=== PATIENT | male | born 1935 | race Caucasian/White ===

== ENCOUNTER 2019-03-12 20:10 | Inpatient (IN) ==
--- NOTE | 2019-03-12 20:29 | Emergency Department Note ---
Disposition Clinical Impression: Multiple transverse process fractures Pelvis fracture Qualifiers: Encounter type: initial encounter Pelvic bone location: pubis Sublocation of pubis: unspecified portion of pubis Fracture type: closed Laterality: unspecified laterality Qualified Code(s): S32.509A - Unspecified fracture of unspecified pubis, initial encounter for closed fracture Right rib fracture Qualifiers: Encounter type: sequela Rib fracture type: multiple ribs Fracture type: closed Qualified Code(s): S22.41XS - Multiple fractures of ribs, right side, sequela Disposition: Admitted As Inpatient Condition: Fair Referrals: NONE,PCP [Primary Care Provider] - Forms: ED Satisfaction Letter Time of Disposition: 22:33 General Adult HPI - General Chief complaint: ED Fall Stated complaint: fall Time Seen by Provider: 03/12/19 20:18 Source: patient Limitations: no limitations Nursing Notes Reviewed: Yes Vital Signs Reviewed: Yes - History of Present Illness HPI Narrative: Patient to the ED with a chief complaint of an injury. Patient was walking up 3 stairs from his garage carrying something. He has neuropathy in his feet. He states he missstepped and fell. Denies being dizzy, syncopal, or having palpitations. Complains of pain in his right ribs and pain in his right hip. He was able to stand after the fall. Denies loss of consciousness. Denies chest pain. Denies palpitations. He does have a history of an intracranial hemorrhage. He does take daily baby aspirin. Pain Scale: 6 - Related Data Home Medications Medication Instructions Recorded Confirmed Aspirin 81 mg PO DAILY 07/15/16 03/12/19 BuPROPion XL (24 HR) [Wellbutrin 150 mg PO DAILY 07/15/16 03/12/19 Xl] Citalopram Hydrobromide [Celexa] 10 mg PO DAILY 07/15/16 03/12/19 Metformin HCl [Glucophage] 1,000 mg PO BID 07/15/16 03/12/19 Metoprolol Succinate 100 mg PO DAILY 07/15/16 03/12/19 Rosuvastatin Calcium [Crestor] 5 mg PO DAILY 07/15/16 03/12/19 SitaGLIPtin [Januvia] 100 mg PO DAILY 07/15/16 03/12/19 Terazosin HCl 2 mg PO DAILY 07/15/16 03/12/19 Previous Rx's Medication Instructions Recorded Losartan [Cozaar] 25 mg PO DAILY #30 tablet 07/21/16 Allergies Allergy/AdvReac Type Severity Reaction Status Date / Time Phenothiazines Allergy Rash Verified 07/15/16 10:34 All systems ED: reviewed and negative except as stated. Constitutional: Denies: fever Cardiovascular: Reports: chest pain. Denies: palpitations Respiratory: Denies: dyspnea Gastrointestinal: Denies: abdominal pain Musculoskeletal: Denies: back pain, neck pain Past Medical History - Past Medical History Attestation: Yes The following information was validated with the patient. Source: patient Medical history: Reports: atrial fibrillation, coronary artery disease, CVA, diabetes, hypertension, myocardial infarction Psychiatric history: Reports: anxiety, depression - Social History Smoking Status: Never smoker Smokeless Tobacco Status: No Alcohol use: Reports: occasionally Drug use: Reports: none Physical Exam Awake alert sitting up in bed in no distress. - General Limitations: no limitations General appearance: alert, in no apparent distress - Head Head exam: atraumatic, normocephalic, normal inspection, other (No hematomas) - Eye Eye exam: Present: normal appearance - Neck Neck exam: Present: normal inspection, full ROM. Absent: tenderness - Chest Chest inspection: Present: other (Tenderness over the right lateral chest inferiorly. No crepitus. No ecchymosis.) - Respiratory Respiratory exam: Present: normal lung sounds bilaterally. Absent: respiratory distress, wheezes - Cardiovascular Cardiovascular exam: Present: regular rate, normal rhythm - Abdominal Exam Abdominal exam: Present: soft, Non-Tender. Absent: tenderness, distention - Extremities Exam Extremities exam: Present: other (Pain with rocking of the pelvis. Pain with log rolling of the right leg. No tenderness over the tib-fib or femur. No def ormities. The leg is not shortened or externally rotated. The foot is pink and warm.) - Neurological Exam Neurological exam: Present: alert, oriented X3 - Psychiatric Psychiatric exam: Present: normal affect - Skin Skin exam: Present: warm, dry Course Course Narrative: Patient in no distress. Imaging. He declines pain meds. - Reevaluation(s) Reevaluation #1: CT pelvis reviewed with the patient. We will admit for PT OT evaluations. Fentanyl ordered. Time: 21:36 Reevaluation #2: CT scan chest reviewed. We will send him back for further imaging of the ribs and lumbar spine. Time: 21:58 Reevaluation #3: Complete imaging. Patient with 4 transverse process fractures and sixth rib fractures. Calling for admission. Time: 23:00 - Consultations Consultation #1: Discussed with Dr. Aguirre. He and or 13 will see in consultation for transverse process fractures and pelvis fracture. Time: 21:58 Consultation #2: Dr Barriga accepts for admission. Time: 23:33 Vital Signs Temperature 98.5 F 03/12/19 20:14 Pulse Rate 98 03/12/19 20:14 Respiratory Rate 20 03/12/19 20:14 Blood Pressure 194/114 03/12/19 20:14 O2 Sat by Pulse Oximetry 97 03/12/19 20:14 Temperature 98.5 F 03/12/19 20:14 Pulse Rate 88 03/12/19 21:30 Respiratory Rate 18 03/12/19 21:01 Blood Pressure 174/110 03/12/19 21:30 O2 Sat by Pulse Oximetry 98 03/12/19 21:01 Oxygen Delivery Oxygen Delivery Room Air Medical Decision Making - Lab Data Result diagrams: 03/12/19 21:50 03/12/19 21:50 Lab Results 03/12/19 03/12/19 Range/Units 21:50 21:50 WBC 6.2 (4.3-11.1) K/mcL RBC 3.48 L (4.19-5.50) M/mcL Hgb 10.8 L (12.9-16.9) g/dL Hct 33.1 L (37.5-50.1) % MCV 95.1 (83.0-100.0) fL MCH 31.0 (28.0-33.3) pg MCHC 32.6 (31.6-35.5) g/dL RDW 14.1 (11.5-14.5) % Plt Count 132 L (140-400) K/mcL MPV 9.5 (9.4-12.4) fL Sodium 138 (136-145) mEq/L Potassium 3.9 (3.5-5.1) mEq/L Chloride 106 (98-107) mEq/L Carbon Dioxide 22 L (23-29) mEq/L BUN 39 H (8-23) mg/dL Creatinine 1.60 H (0.70-1.30) mg/dL Est GFR ( Amer) 50 L (> 60) Est GFR (Non-Af Amer) 41 L (> 60) BUN/Creatinine Ratio 24 (6-26) Glucose 287 H (70-105) mg/dL Calculated Osmolality 306 H (280-300) Calcium 9.5 (8.6-10.3) mg/dL Critical Care Time Critical Care Time: No
[2019-03-12] MEDS ORDERED: *HR* FentaNYL (PF) 100 MCG/2 ML VIAL IVP ONE (21:33)
[2019-03-12 22:00] LABS: Hematocrit 33.1 % (37.5-50.1); Hemoglobin 10.8 g/dL (12.9-16.9); Mean Corpuscular HGB Conc 32.6 g/dL (31.6-35.5); Mean Corpuscular Volume 95.1 fL (83.0-100.0); Mean Platelet Volume 9.5 fL (9.4-12.4); Platelet Count 132 K/mcL (140-400); Red Blood Count 3.48 M/mcL (4.19-5.50); Red Cell Distribution Width 14.1 % (11.5-14.5); White Blood Count 6.2 K/mcL (4.3-11.1)
[2019-03-12 22:19] LABS: Calcium 9.5 mg/dL (8.6-10.3); Potassium 3.9 mEq/L (3.5-5.1)
[2019-03-12] MEDS ORDERED: Naloxone 0.4 MG/ML INJ IVP PRN (23:50)
[2019-03-12] MEDS ORDERED: D5% in Water 1,000 ML IVC PRN (23:55)
[2019-03-12] MEDS ORDERED: Ketorolac 30 MG/ML VIAL IVP PRN (23:55)
[2019-03-12] MEDS ORDERED: Dextrose Gel 15 GM/37.5 ML TUBE PO PRN ×2 (23:55)
[2019-03-12] MEDS ORDERED: *HR* Dextrose 50 % in Water (Syg) 50 ML SYRINGE IVP PRN (23:55)
[2019-03-13] MEDS ORDERED: *HR* Labetalol 20 MG/4 ML SYRINGE IVP ONE (00:52)
[2019-03-13] MEDS ORDERED: Lidocaine Jelly 11 ml Syringe TP ONE (01:30)
[2019-03-13] MEDS: Insulin LISPRO 300 UNITS/3 ML VIAL SQ SCH ×4 (02:13→17:36)
[2019-03-13] MEDS: Insulin DETEMIR 100 UNIT/ML X5UNITS SQ SCH ×2 (02:21→22:23)
[2019-03-13] MEDS: *HR* Heparin 5,000 UNIT/ML VIAL SQ SCH ×4 (02:21→22:22)
[2019-03-13] MEDS: 0.9 % Sodium Chloride 1,000 ML IVC SCH ×2 (02:22→16:18)
[2019-03-13 05:39] LABS: Basophils % 0.1 %; Eosinophils % 0.4 %; Hematocrit 32.1 % (37.5-50.1); Hemoglobin 10.3 g/dL (12.9-16.9); Immature Granulocytes % 0.7 % (0-4); Lymphocytes # 0.4 K/mcL (0.6-4.6); Lymphocytes % 5.4 %; Mean Corpuscular HGB Conc 32.1 g/dL (31.6-35.5); Mean Corpuscular Hemoglobin 30.2 pg (28.0-33.3); Mean Corpuscular Volume 94.1 fL (83.0-100.0); Mean Platelet Volume 9.2 fL (9.4-12.4); Monocytes # 0.5 K/mcL (0.0-1.3); Monocytes % 6.4 %; Neutrophils # 6.3 K/mcL (1.6-8.9); Platelet Count 127 K/mcL (140-400); Red Blood Count 3.41 M/mcL (4.19-5.50); Red Cell Distribution Width 14.1 % (11.5-14.5); White Blood Count 7.2 K/mcL (4.3-11.1)
[2019-03-13 05:57] LABS: Albumin 3.9 g/dL (3.5-5.7); Albumin/Globulin Ratio 1.6 (1.1-2.2); Bilirubin,Total 0.6 mg/dL (0.3-1.0); Calcium 9.5 mg/dL (8.6-10.3); Globulin 2.5 g/dL (2.4-3.5); Magnesium 1.9 mg/dL (1.6-2.6); Potassium 3.9 mEq/L (3.5-5.1); Total Protein 6.4 g/dL (6.4-8.9)
[2019-03-13 06:00] LABS: Prothrombin Time 11.9 Seconds (9.4-12.1)
[2019-03-13 06:02] LABS: Activated Partial Thrombo Time 34.8 Seconds (26.0-36.0)
--- NOTE | 2019-03-13 06:13 | Internal Med History&Physical ---
Date of Encounter: 03/13/19 Time of Encounter: 01:00 Internal Medicine - H&P: HPI Chief complaint: Mechanical fall History of present illness: Mr. Elizabeth is a 83 year old male with a past medical history of diabetes, atrial fibrillation, hypertension, BPH, coronary artery disease status post stenting, hyperlipidemia and sleep apnea who presented to the ED after a mech anical fall. Patient states that he was at home caring 2 items in his hands and going up 3 steps into his home when he lost his balance and fell backwards. Denies any loss of consciousness. Denies any head trauma. Patient takes a baby aspirin. Patient had difficulty getting up shortly thereafter and his called the squad. Patient reported right-sided rib pain and hip pain. Imaging showed acute fractures of the eighth through 12th ribs on the right side and transverse processes of T11-L3. CT of his pelvis also showed a comminuted fracture of the right para symphyseal pubic bone with extension to the superior ramus. Vitals on arrival were notable for hypertension with a blood pressure 194/114. Laboratory workup was notable for a mild elevation in creatinine which appears to be chronic at 1.6 and hyperglycemia with a blood glucose of 287. Patient was given fentanyl for pain. Case was discussed with orthopedics and Dr. Mckinney who is a friend of the patient who will see the patient in the morning. 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 He retired in 2002. Patient wishes to be made DNR/DNI Past Med Surg Social Fam HX - Past Medical History Medical history: atrial fibrillation, coronary artery disease, CVA, diabetes, hypertension, myocardial infarction Additional medical history: brain bleed Psychiatric history: anxiety, depression - Past Surgical History Surgical History: angioplasty/stent Additional surgical history: gastric resections x 2, left knee surgery - Social History Smoking Status: Former smoker Smokeless Tobacco Status: No Alcohol use: occasionally Drug use: none - Family History Mother Living Status: Age at : 92 Hx Family Cancer: Yes (breast cancer) Father Living Status: Age at : 78 Hx Family Cardiac Disorders: Yes (htn) Hx Family Medical Disorders: Yes (HTN) Internal Medicine - H&P: Meds Aspirin 81 mg PO DAILY 07/15/16 [History] BuPROPion XL (24 HR) [Wellbutrin Xl] 150 mg PO DAILY 07/15/16 [History] Citalopram Hydrobromide [Celexa] 10 mg PO DAILY 07/15/16 [History] Metformin HCl [Glucophage] 500 mg PO BID 07/15/16 [History] Metoprolol Succinate 50 mg PO BID 07/15/16 [History] Rosuvastatin Calcium [Crestor] 5 mg PO DAILY 07/15/16 [History] SitaGLIPtin [Januvia] 100 mg PO DAILY 07/15/16 [History] Terazosin HCl 2 mg PO DAILY 07/15/16 [History] Losartan [Cozaar] 50 mg PO BID 03/13/19 [History] Mirabegron [Myrbetriq] 50 mg PO HS 03/13/19 [History] Multivit-Min/Iron Fum/Folic AC [Qcbii-Rxphwuf-Pppgmgwx Tablet] 1 tab PO BID 03/13/19 [History] hydrALAZINE [HydrALAZINE] 25 mg PO BID 03/13/19 [History] Allergy/AdvReac Type Severity Reaction Status Date / Time Phenothiazines Allergy Rash Verified 07/15/16 10:34 All Systems PM: A 10-system review of systems was performed and is negative for pertinent findings except as documented above in the HPI. - Constitutional Constitutional: no chills, no fever(s), no night sweats - EENT Eyes: no change in vision, no discharge, no pain, no photophobia Ears: no ear discharge, no ear pain, no tinnitus Nose, mouth and throat: no dysphagia, no nasal discharge, no neck pain, no sore throat - Cardiovascular Cardiovascular ROS IM: no chest pain, no diaphoresis, no dyspnea, no lightheadedness, no palpitations, no syncope - Respiratory Respiratory: no cough, no dyspnea, no wheezing, no excessive phlegm production - Gastrointestinal Gastrointestinal: no abdominal pain, no diarrhea, no hematemesis, no hematochezia, no melena, no nausea, no vomiting - Musculoskeletal Musculoskeletal ROS IM: no numbness, no tingling - Integumentary Integumentary IM: no rash, no unusual bruising - Neurological Neurological ROS: no confusion, no convulsions, no focal weakness, no numbness, no tingling, no tremor(s) - Hematologic/Lymphatic Hematologic/Lymphatic: no easy bruising - Constitutional Vitals: Temp Pulse Resp BP Pulse Ox 98.2 F 106 18 147/78 94 03/13/19 05:50 03/13/19 05:50 03/13/19 05:50 03/13/19 05:50 03/13/19 05:50 Exam: General: Alert and oriented 3 Skin:Normal color, no rash, no lesions. HEENT:EOM, pupils equal, round and reactive. Cardiovascular:Normal S1 & S2, no rubs, murmurs or gallops. No JVD. Pulse regular. Lungs:Normal breath sounds, no wheezes or crackles. Abdomen:Soft, non-tender, no rigidity. Tenderness to palpation along the right lower ribs Extremities:No deformity, no edema or tenderness, no joint swelling or clubbing. Neurological:Normal cognition and motor skills. Pulses:Carotid and radial pulses normal +2. Rest of the physical exam is non contributory Internal Med - H&P Results - Labs CBC & Chem 7: 03/13/19 05:14 03/13/19 05:14 Labs: Short CBC 03/12/19 03/13/19 Range/Units 21:50 05:14 WBC 6.2 7.2 (4.3-11.1) K/mcL Hgb 10.8 L 10.3 L (12.9-16.9) g/dL Hct 33.1 L 32.1 L (37.5-50.1) % Plt Count 132 L 127 L (140-400) K/mcL Neutrophils # 6.3 (1.6-8.9) K/mcL BMP 03/12/19 03/13/19 21:50 05:14 Sodium 138 140 Potassium 3.9 3.9 Chloride 106 105 Carbon Dioxide 22 L 25 BUN 39 H 38 H Creatinine 1.60 H 1.56 H Glucose 287 H 228 H Calcium 9.5 9.5 Liver Function 03/13/19 Range/Units 05:14 Total Bilirubin 0.6 (0.3-1.0) mg/dL AST 26 (13-39) Units/L ALT 25 (7-52) Units/L Alkaline Phosphatase 59 (34-104) Units/L Albumin 3.9 (3.5-5.7) g/dL - Impressions ITS Impressions Chest CT 03/12/19 20:20 IMPRESSION: Acute right 7th through 9th rib fractures. Again, note that the 10th through 12th ribs are not included on the field of view. Acute fractures of the right transverse processes of T11 through L1. Chronic left rib and sternal fractures. Small right pleural effusion with adjacent passive atelectasis. No pneumothorax is seen. Mild ectasia of the ascending thoracic aorta, measuring 4.2 cm, essentially unchanged when compared to the previous exam. D/ / Kemal Lara MD / Kemal Lara MD Interpreting Provider: Kemal Lara MD Head CT 03/12/19 20:23 IMPRESSION: No acute intracranial abnormality. Stable senescent changes. Remote bilateral basal ganglia lacunar strokes, left larger than right. D/ / Jordan Mclean / Jordan Mclean Interpreting Provider: Jordan Mclean Pelvis CT 03/12/19 20:23 IMPRESSION: Comminuted fracture of the right parasymphyseal pubic bone with extension to the superior ramus. Oblique, mildly comminuted fracture of the right inferior pubic ramus. D/ / Kemal Lara MD / Kemal Lara MD Interpreting Provider: Kemal Lara MD Abdomen CT 03/12/19 21:51 IMPRESSION: Acute fractures of the 8th through 12th ribs on the right and transverse processes of T11-L3. Multiple cystic lesions noted throughout the pancreas measuring up to 1.5 cm. 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 Consider nonemergent pancreatic protocol MRI for further evaluation. D/ / Nasir Jackson MD / Nasir Jackson MD Interpreting Provider: Nasir Jackson MD Lumbar Spine CT 03/12/19 21:53 IMPRESSION: Multiple right-sided transverse process fractures in the lumbar spine Multiple right-sided rib fractures Small pleural effusion on the right with associated atelectasis D/ / James Jenkins / James Jenkins Interpreting Provider: James Jenkins - Assessment and Plan (1) Multiple transverse process fractures Current Visit: Yes Status: Acute Assessment and plan: Acute fracture of the transverse processes of T11-L3 that is post fall. -Continue pain control as needed -Orthopedic to evaluate (2) Pelvis fracture Current Visit: Yes Status: Suspected Assessment and plan: Comminuted fractures of the right parasymphyseal pubic bone with extension to the superior ramus. Oblique, mildly comminuted fracture of the right inferior pubic ramus. -Continue pain control as needed -Orthopedic to evaluate Qualifiers: Encounter type: initial encounter Pelvic bone location: pubis Sublocation of pubis: unspecified portion of pubis Fracture type: closed Laterality: unspecified laterality Qualified Code(s): S32.509A - Unspecified fracture of unspecified pubis, initial encounter for closed fracture (3) Right rib fracture Current Visit: Yes Status: Acute Assessment and plan: Acute fractures of the eighth through 12th ribs on the right. -We will place lidocaine patch over the area -Pain control as needed Qualifiers: Encounter type: sequela Rib fracture type: multiple ribs Fracture type: closed Qualified Code(s): S22.41XS - Multiple fractures of ribs, right side, sequela (4) DM type 2 (diabetes mellitus, type 2) Current Visit: No Status: Acute Assessment and plan: Blood sugar found to be elevated at 287. -We will start patient on blood glucose checks every 6 hours with sliding scale plus basal insulin. Qualifiers: Diabetes mellitus retirement insulin use: without retirement use Diabetes mellitus complication status: without complication Qualified Code(s): E11.9 - Type 2 diabetes mellitus without complications (5) Hypertension Current Visit: No Status: Acute Assessment and plan: Patient presenting with elevated blood pressure. Likely secondary to pain Patient states he took his home blood pressures medications earlier today. 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 No evidence of abnormal LFTs. Consider nonemergent pancreatic protocol MRI for further evaluation. (7) DVT prophylaxis Current Visit: No Status: Acute Assessment and plan: Subcutaneous heparin - Time Spent With Patient Total time spent is greater than 50% in coordination of care (as documented) at patient's floor/unit and/or counseling patient:
[2019-03-13] MEDS: Metoprolol XL (24 HR) Succ 50 MG TAB.ER.24H PO SCH (08:11)
[2019-03-13] MEDS: Aspirin 81 MG TAB.CHEW PO SCH (08:11)
[2019-03-13] MEDS: BuPROPion XL (24 HR) 150 MG TABLET PO SCH (08:18)
--- NOTE | 2019-03-13 09:44 | Spine Progress Note ---
Date of Encounter: 03/13/19 Time of Encounter: 09:42 - Assessment and Plan (1) Lumbar transverse process fracture Current Visit: Yes Status: Acute On exam is lying in bed in moderate distress secondary to back pain. Afebrile vital signs stable. He is neurovascularly intact with regard to his bilateral lower extremities. He has tenderness to palpation in the lumbar region. He has weakness in the right iliopsoas muscle which was not fully tested secondary to pain with performance of the maneuver. He has no clubbing cyanosis or edema. He has no clonus. CT scan of the lumbar spine dated 03/12/2019 reveals multiple right-sided rib fractures and multiple transverse process fractures L1-L3 on the right. He has mild multilevel degenerative changes. Impression: Transverse process fractures right L1-L3 Plan: We did order a clamshell type, TLSO brace which will be available on Friday. He will continue rehabilitation and analgesics. He does not require surgical intervention. Qualifiers: Encounter type: initial encounter Fracture type: closed Qualified Code(s): S32.009A - Unspecified fracture of unspecified lumbar vertebra, initial encounter for closed fracture Subjective Principal diagnosis: Transverse process fractures, back pain Interval history: Patient is an 83-year-old gentleman who was ambulating with cane in home and was holding an object in his contralateral upper extremity and slipped and fell. He sustained multiple injuries and will was evaluated in the [facility]. He does not have transverse process fractures lumbar spine as well as rib fractures and was admitted to the hospitalist service for definitive management. Patient complaining of back pain as well as chest pain and weakness in the right lower extremity. He denies any neurologic deficits. He denies any bowel bladder symptomatology. Objective Vital signs: Vital Signs Temp Pulse Resp BP Pulse Ox 03/13/19 08:21 94 03/13/19 05:50 98.2 F 106 18 147/78 94 03/13/19 03:36 153/78 03/13/19 03:20 131/76 03/13/19 03:04 154/82 03/13/19 02:48 98.7 F 106 16 165/89 93 03/13/19 02:34 178/102 03/13/19 02:09 204/104 03/13/19 01:10 94 18 193/116 96 03/13/19 00:04 86 18 185/112 96 03/12/19 23:30 189/104 97 03/12/19 22:30 185/110 95 03/12/19 21:30 88 174/110 03/12/19 21:01 95 18 176/98 98 03/12/19 20:14 98.5 F 98 20 194/114 97 Intake and Output 03/12/19 03/13/19 03/13/19 23:59 07:59 15:59 Intake Total 0 / 50 50 / 50 Output Total 750 / 750 Balance -750 / -700 50 / -700 Intake: Oral 0 / 50 50 / 50 Output: Catheter 750 / 750 Other: Weight 79.469 kg Blood Glucose* 217 - Labs CBC & BMP: 03/13/19 05:14 03/13/19 05:14 Labs: Abnormal lab results RBC 3.41 M/mcL (4.19-5.50) L 03/13/19 05:14 Hgb 10.3 g/dL (12.9-16.9) L 03/13/19 05:14 Hct 32.1 % (37.5-50.1) L 03/13/19 05:14 Plt Count 127 K/mcL (140-400) L 03/13/19 05:14 MPV 9.2 fL (9.4-12.4) L 03/13/19 05:14 0.4 K/mcL (0.6-4.6) L 03/13/19 05:14 Carbon Dioxide 22 mEq/L (23-29) L 03/12/19 21:50 BUN 38 mg/dL (8-23) H 03/13/19 05:14 1.56 mg/dL (0.70-1.30) H 03/13/19 05:14 Est GFR ( Amer) 52 (> 60) L 03/13/19 05:14 Est GFR (Non-Af Amer) 43 (> 60) L 03/13/19 05:14 Glucose 228 mg/dL (70-105) H 03/13/19 05:14 POC Glucose 217 mg/dL (70-99) H 03/13/19 06:34 306 (280-300) H 03/13/19 05:14 Consult Discharge Plan - Plan Referrals: NONE,PCP [Primary Care Provider] -
[2019-03-13] MEDS: Ondansetron 4 MG/2 ML VIAL IVP PRN (11:26)
--- NOTE | 2019-03-13 12:01 | Event Note ---
Date of Encounter: 03/13/19 Time of Encounter: 10:15 H&P reviewed. 83-year-old male, who is a retired surgeon, with PMHx of diabetes, hypertension, CAD s/p PCI, CKD, Afib not on AC, was admitted overnight due to mechanical fall with multiple fractures; R 8th-12th ribs, R transverse process T11-L3, R parasymphyseal pubic bone fracture extending to superior ramus, and R inferior pubic ramus fracture. Or orthopedic evaluation, pain control, and will resume diet and home meds as none of the fractures appear to be operative. Pt is undecided about potential ECF placement and would like to see how much he can engage with PT/OT.
[2019-03-13] MEDS ORDERED: 0.9 % Sodium Chloride 1,000 ML ONE (16:14)
[2019-03-13] MEDS ORDERED: 0.9 % Sodium Chloride 1,000 ML IVC SCH (16:15)
[2019-03-13] MEDS ORDERED: Morphine PCA 30 MG/ 30 ML 30 ML PCA.VIAL IVC PRN (16:15)
--- NOTE | 2019-03-13 16:56 | General Surgery Consult Note ---
Date of Encounter: 03/13/19 Time of Encounter: 16:00 History of Present Illness Consult date: 03/13/19 Reason for consult: other (fall resulting in multiple fractures) Requesting physician: Leeanne Olmos History of present illness: Surgical consultation placed at the patient's request. 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 No weightbearing bony structures were injured. CT of the head demonstrated no new findings. CT thorax demonstrated the bony fractures without evidence of pneumothorax and right posterior pulmonary contusion. CT of the abdomen and pelvis demonstrated no intra-abdominal or pelvic injuries, no fluid collections or hematoma. Hips and femurs appeared intact. 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 Allergies: Phenothiazines Medications on admission Aspirin 81 mg by mouth daily Bupropion 150 mg by mouth daily Citalopram 10 mg by mouth daily Metformin 1000 mg by mouth twice a day Metoprolol 100 mg by mouth daily Rosuvastatin 5 mg by mouth daily SitaGLIPtin 100 mg by mouth daily Terazosin 2 mg by mouth daily Losartan 25 mg by mouth daily Social history: Patient is retired, and lives at home with his spouse. He does not currently consume alcohol, tobacco, or use illicit drugs. The patient is a former smoker (pipe); discontinued over 30 years ago. Family history: Father at age 78; history of hypertension Mother at age 92, history of breast cancer Son at age 62 ?, lung cancer On physical examination: Age-appropriate male resting comfortably in his hospital bed. He appears to be oriented 3, and is appropriately responsive to questions and commands. The patient is afebrile, currently 98.6, pulse irregular ranging 91-106, respiratory rate 16-18; blood pressure currently 135/87-147/78 however on presentation to the ED the patient was hypertensive at 194/114. The patient describes ineffective pain control with the current regimens. He is experiencing back spasms. Skin: warm, dry, without obvious jaundice Lungs: Clear posteriorly however there were copious upper airway sounds. Poor, ineffective cough with incomplete clearance of his airway due to pain Cardiac: Irregular rate Abdomen: Soft, without obvious intra-abdominal masses, tenderness, peritoneal signs. Active bowel sounds CT - head, thorax, abdomen and pelvis were reviewed with [facility] - WBC on presentation 6.2, repeat this morning 7.2. Differential this a.m. notable for decreased lymphocytes at 0.4 Hemoglobin on presentation 10.8 with hematocrit 33.1; repeat today 10.3/32.1 Platelet count on presentation low at 132,000; 127,000 this morning. Electrolytes on presentation and repeated this morning essentially stable and within normal limits. Carbon dioxide was low at 22 but has returned to normal, 25, this a.m. BUN and presentation 39, creatinine 1.60; repeat this morning 38/1.56 respectively Estimated GFR on presentation 41, 43 this morning. Blood sugars to 87, repeat this morning 228; accuchecks - 217 at 06:34; 148 at 12 noon. Impression: 83-year-old male with multiple fractures involving the right posterior ribs, 8 through 12; transverse processes T11-L3 and comminuted fracture of the right parasymphyseal pubis extending to the ramus. Patient with a history of prior fall, June 2016 with multiple left-sided rib fractures complicated by progressive hypoxia resulting in acute confusion and hallucinosis. The confusion and hallucinosis resolved with correction of the patient's hypoxia. The current injuries/fractures create potential risk for similar complications. The patient is complaining of inadequate pain control and demonstrates a week, ineffective cough. The patient requires no surgical intervention but would benefit from more aggressive pain control as well as aerosol therapy. The patient should also have CPAP administered nightly. His family has been instructed to bring his CPAP equipment from home. Additional findings include anemia, stable CKD; the anemia most likely one of chronic disease related to his diabetes and diabetic nephropathy. 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 Caceres). If patient ambulatory, he is to use a walker. Proventil aerosol every 6 hours Continue IV fluids Monitor H&H, platelet count and renal status. Past Med Surg Social Fam HX - Past Medical History Medical history: atrial fibrillation, coronary artery disease, CVA, diabetes, hypertension, myocardial infarction Additional medical history: brain bleed Psychiatric history: anxiety, depression - Past Surgical History Surgical History: angioplasty/stent Additional surgical history: gastric resections x 2, left knee surgery - Social History Smoking Status: Former smoker Smokeless Tobacco Status: No Alcohol use: occasionally Drug use: none - Family History Mother Living Status: Age at : 92 Hx Family Cancer: Yes (breast cancer) Father Living Status: Age at : 78 Hx Family Cardiac Disorders: Yes (htn) Hx Family Medical Disorders: Yes (HTN) Medications and Allergies Aspirin 81 mg PO DAILY 07/15/16 [History] BuPROPion XL (24 HR) [Wellbutrin Xl] 150 mg PO DAILY 07/15/16 [History] Citalopram Hydrobromide [Celexa] 10 mg PO DAILY 07/15/16 [History] Metformin HCl [Glucophage] 500 mg PO BID 07/15/16 [History] Metoprolol Succinate 50 mg PO BID 07/15/16 [History] Rosuvastatin Calcium [Crestor] 5 mg PO DAILY 07/15/16 [History] SitaGLIPtin [Januvia] 100 mg PO DAILY 07/15/16 [History] Terazosin HCl 2 mg PO DAILY 07/15/16 [History] Losartan [Cozaar] 50 mg PO BID 03/13/19 [History] Mirabegron [Myrbetriq] 50 mg PO HS 03/13/19 [History] Multivit-Min/Iron Fum/Folic AC [Jyorv-Eltgbyz-Yssoheer Tablet] 1 tab PO BID 03/13/19 [History] hydrALAZINE [HydrALAZINE] 25 mg PO BID 03/13/19 [History] Allergy/AdvReac Type Severity Reaction Status Date / Time Phenothiazines Allergy Rash Verified 07/15/16 10:34 Review of Systems All systems PM: The remainder of the systems were reviewed and are negative General Surgery Exam Initial Vital Signs Temp Pulse Resp BP Pulse Ox 98.5 F 98 20 194/114 97 03/12/19 20:14 03/12/19 20:14 03/12/19 20:14 03/12/19 20:14 03/12/19 20:14 Exam Initial Vital Signs Temp Pulse Resp BP Pulse Ox 98.5 F 98 20 194/114 97 03/12/19 20:14 03/12/19 20:14 03/12/19 20:14 03/12/19 20:14 03/12/19 20:14 Results - Labs 03/13/19 05:14 03/13/19 05:14 Abnormal lab results RBC 3.41 M/mcL (4.19-5.50) L 03/13/19 05:14 Hgb 10.3 g/dL (12.9-16.9) L 03/13/19 05:14 Hct 32.1 % (37.5-50.1) L 03/13/19 05:14 Plt Count 127 K/mcL (140-400) L 03/13/19 05:14 MPV 9.2 fL (9.4-12.4) L 03/13/19 05:14 0.4 K/mcL (0.6-4.6) L 03/13/19 05:14 Carbon Dioxide 22 mEq/L (23-29) L 03/12/19 21:50 BUN 38 mg/dL (8-23) H 03/13/19 05:14 1.56 mg/dL (0.70-1.30) H 03/13/19 05:14 Est GFR ( Amer) 52 (> 60) L 03/13/19 05:14 Est GFR (Non-Af Amer) 43 (> 60) L 03/13/19 05:14 Glucose 228 mg/dL (70-105) H 03/13/19 05:14 POC Glucose 148 mg/dL (70-99) H 03/13/19 12:05 306 (280-300) H 03/13/19 05:14 Diabetes panel 03/12/19 03/13/19 Range/Units 21:50 05:14 Sodium 138 140 (136-145) mEq/L Potassium 3.9 3.9 (3.5-5.1) mEq/L Chloride 106 105 (98-107) mEq/L Carbon Dioxide 22 L 25 (23-29) mEq/L BUN 39 H 38 H (8-23) mg/dL Creatinine 1.60 H 1.56 H (0.70-1.30) mg/dL Glucose 287 H 228 H (70-105) mg/dL Calcium 9.5 9.5 (8.6-10.3) mg/dL AST 26 (13-39) Units/L ALT 25 (7-52) Units/L Alkaline Phosphatase 59 (34-104) Units/L Albumin 3.9 (3.5-5.7) g/dL Calcium panel 03/12/19 03/13/19 Range/Units 21:50 05:14 Calcium 9.5 9.5 (8.6-10.3) mg/dL Albumin 3.9 (3.5-5.7) g/dL Pituitary panel 03/12/19 03/13/19 Range/Units 21:50 05:14 Sodium 138 140 (136-145) mEq/L Potassium 3.9 3.9 (3.5-5.1) mEq/L Chloride 106 105 (98-107) mEq/L Carbon Dioxide 22 L 25 (23-29) mEq/L BUN 39 H 38 H (8-23) mg/dL Creatinine 1.60 H 1.56 H (0.70-1.30) mg/dL Glucose 287 H 228 H (70-105) mg/dL Calcium 9.5 9.5 (8.6-10.3) mg/dL Adrenal panel 03/12/19 03/13/19 Range/Units 21:50 05:14 Sodium 138 140 (136-145) mEq/L Potassium 3.9 3.9 (3.5-5.1) mEq/L Chloride 106 105 (98-107) mEq/L Carbon Dioxide 22 L 25 (23-29) mEq/L BUN 39 H 38 H (8-23) mg/dL Creatinine 1.60 H 1.56 H (0.70-1.30) mg/dL Glucose 287 H 228 H (70-105) mg/dL Calcium 9.5 9.5 (8.6-10.3) mg/dL Total Bilirubin 0.6 (0.3-1.0) mg/dL AST 26 (13-39) Units/L ALT 25 (7-52) Units/L Alkaline Phosphatase 59 (34-104) Units/L Albumin 3.9 (3.5-5.7) g/dL All other labs normal. Consult Discharge Plan - Plan Referrals: NONE,PCP [Primary Care Provider] -
[2019-03-13] MEDS ORDERED: Albuterol 2.5 MG/3 ML NEBULIZER ONE (18:49)
[2019-03-13] MEDS: Albuterol 2.5 MG/3 ML NEBULIZER IH SCH ×2 (18:51→21:19)
[2019-03-13] MEDS ORDERED: hydrALAZINE 25 MG TABLET PO SCH (21:00)
[2019-03-13] MEDS: (Mirabegron [Myrbetriq] 50 MG) PO SCH (22:22)
[2019-03-14] MEDS: Levalbuterol Neb 1.25 MG/3 ML IH SCH ×5 (00:59→21:18)
[2019-03-14] MEDS ORDERED: Furosemide 20 MG/2 ML VIAL IVP ONE (02:06)
--- NOTE | 2019-03-14 02:15 | Event Note ---
Date of Encounter: 03/14/19 Time of Encounter: 00:01 Alerted by pts. nurse GABO Guillen that the pt. had been admitted for multiple fractures post fall at home. Patient's O2 saturation was 88-89% while wearing his home CPAP. Nurse notified RT who came and hooked up oxygen to bleed into the system. Last BP was 184/112. Patient has MULTIMEDIA PRODUCTION ASSISTANT pump but has not been using it. Nurse reminded patient about using the MULTIMEDIA PRODUCTION ASSISTANT pump which he did for the first time. Nurse also noted that patient's lungs sound congested. Patient currently has 0.9 IV fluids running at 75 MLS per hour. Albuterol breathing treatments stopped due to patient's tachycardia and replaced with Xopenex IH, with first start now. Stat one view portable CXR ordered which showed pulmonary edema noted with bibasilar airspace disease. Heart size mildly enlarged. No discernible pneumothorax. Pts. SpO2 improved to 92% on room by CPAP. RT noted patient's lungs sounded fluid-filled on auscultation as well. IV fluids stopped and one-time dose of 20 mg IVP Lasix ordered and administered. Pt. currently has Tinoco catheter in place d/t immobility from trauma. Monitor I&O. Will continue to monitor this pt. closely overnight and repeat CXR in a.m. to assess for improvement in pulmonary edema. MULTIMEDIA PRODUCTION ASSISTANT pump stopped since IV fluids stopped and PO oxycodone ordered. Nurse instructed to monitor pt. very closely and alert me immediately of any adverse changes.
[2019-03-14] MEDS: *HR* OxyCODONE Immed Rel 5 MG TABLET PO PRN ×2 (03:52→08:14)
[2019-03-14] MEDS: Ondansetron 4 MG/2 ML VIAL IVP PRN (04:35)
[2019-03-14] MEDS: *HR* Heparin 5,000 UNIT/ML VIAL SQ SCH ×3 (05:34→21:02)
[2019-03-14] MEDS ORDERED: *HR* Promethazine 25 MG/ML VIAL IVP PRN (07:42)
[2019-03-14 07:57] LABS: Hematocrit 34.7 % (37.5-50.1); Mean Corpuscular HGB Conc 31.7 g/dL (31.6-35.5); Mean Corpuscular Volume 97.7 fL (83.0-100.0); Mean Platelet Volume 9.4 fL (9.4-12.4); Platelet Count 131 K/mcL (140-400); Red Blood Count 3.55 M/mcL (4.19-5.50); Red Cell Distribution Width 14.5 % (11.5-14.5); White Blood Count 7.9 K/mcL (4.3-11.1)
[2019-03-14] MEDS ORDERED: Ondansetron 4 MG/2 ML VIAL IVP ONE (08:05)
[2019-03-14 08:17] LABS: Calcium 9.1 mg/dL (8.6-10.3); Potassium 3.8 mEq/L (3.5-5.1)
[2019-03-14] MEDS: Insulin LISPRO 300 UNITS/3 ML VIAL SQ SCH ×3 (08:23→17:09)
[2019-03-14] MEDS ORDERED: *HR* SitaGLIPtin 100 MG TABLET PO SCH (09:00)
[2019-03-14] MEDS ORDERED: Furosemide 40 MG/4 ML VIAL IVP ONE (09:02)
[2019-03-14] MEDS: hydrALAZINE 25 MG TABLET PO SCH ×2 (09:13→19:58)
[2019-03-14] MEDS: Aspirin 81 MG TAB.CHEW PO SCH (09:13)
[2019-03-14] MEDS: BuPROPion XL (24 HR) 150 MG TABLET PO SCH (09:13)
[2019-03-14] MEDS: Metoprolol XL (24 HR) Succ 50 MG TAB.ER.24H PO SCH ×2 (09:13→19:59)
[2019-03-14] MEDS ORDERED: Morphine PCA 30 MG/ 30 ML 30 ML PCA.VIAL IVC PRN (09:27)
[2019-03-14 09:55] LABS: ABG Base Excess 0 mEq/L (-2 to 3); ABG HCO3 25 mEq/L (21-27); ABG Oxygen Saturation 93 % (95-98); ABG PCO2 40 mmHg (35-45); ABG PH 7.39 pH Units (7.32-7.45); ABG PO2 68 mmHg (85-104); ABG TCO2 26 mEq/L (20-26)
[2019-03-14 10:01] LABS: Prothrombin Time 11.7 Seconds (9.4-12.1)
[2019-03-14 10:41] LABS: Bilirubin,Urine Negative (Negative); Blood,Urine Small (Negative); Clarity,Urine Cloudy (Clear); Color,Urine Yellow (Yellow); Glucose,Urine (UA) Normal (Normal); Ketones,Urine Negative (Negative); Leukocyte Esterase,Urine Small (Negative); Nitrite,Urine Negative (Negative); PH,Urine 5.5 pH Units (5.0-8.0); Protein,Urine Negative (Neg-Trace); Specific Gravity,Urine 1.007 (1.010-1.025); Urobilinogen,Urine Normal (Normal)
[2019-03-14 10:44] LABS: Bacteria,Urine None Seen per hpf (None-Few); Hyaline Casts,Urine None Seen per lpf (None-Few); Squamous Epithelial Cell,Urine Moderate per lpf (None-Few)
[2019-03-14] MEDS: 0.9 % Sodium Chloride 500 ML ONE (11:15)
--- NOTE | 2019-03-14 12:03 | Internal Med Progress Note ---
Hospitalist Progress Note - Encounter Date of Encounter: 03/14/19 Time of Encounter: 11:00 - Subjective Interval History: Overnight event noted. Pt was started on STORE CASHIER Pump and continued on IVF but he had episodes of desaturation overnight despite being on CPAP as well. Due to the concern for bilateral rales with hypoxia, along with CXR finding consistent with pulmonary edema, IVF was stopped and he was given 1 time dose of lasix. This morning, pt denied any chest pain, SOB, orthopnea, or leg swelling but he was noted to be more lethargic. No cough or sputum production. Also had a temp of 102 this morning. - Exam Vitals: Temp Pulse Resp BP Pulse Ox 99.0 F 102 20 129/77 94 03/14/19 11:18 03/14/19 11:18 03/14/19 11:18 03/14/19 11:18 03/14/19 11:18 Exam: General: Alert and oriented 3 but falls asleep easily during the interview HEENT:pupils equal, round and reactive. Cardiovascular:Normal S1 & S2, no rubs, murmurs or gallops. No JVD. Pulse regular Lungs: bilateral crackles Abdomen:Soft, non-tender, no rigidity. Tenderness to palpation along the right lower ribs Extremities:No deformity, no edema or tenderness, no joint swelling or clubbing. Neurological:No focal deficits - Assessment and Plan (1) Acute respiratory failure with hypoxia Current Visit: Yes Status: Acute Assessment and Plan: developed hypoxia overnight despite being on CPAP pt has underlying, severe FELECIA CXR consistent with pulmonary edema but was a poor inspiratory film ?atelectasis due to pain from rib fractures although pt also had fever, chest CT on presentation did not show any consolidative findings. pt developed somnolence and unable to utilize incentive spirometry adequately will alternate between HFNC and CPAP. Close monitoring in ICU continue IV diuresis x 1 more dose and monitor Cr. If it continues to rise, would hold off and consult nephrology continue bronchodilators check echocardiogram unable to obtain CTA to rule out PE, will check LE doppler monitor off abx, see the mx for fever as below (2) Fever Current Visit: Yes Status: Acute Assessment and Plan: temp 102 this morning, no leukocytosis however no source of infection identified on the initial workup leading to the admission appears to be most likely due to atelectasis but would complete the infectious workup given his worsening mentation with urinalysis, blood cultures, and procalcitonin monitor off abx for now (3) Multiple transverse process fractures Current Visit: Yes Status: Acute Assessment and Plan: multiple transverse processes of T11-L3 appreciate spine surgery input, for TLSO brace PT/OT, pain control (4) Right rib fracture Current Visit: Yes Status: Acute Assessment and Plan: conservative mx complicated by atelectasis, mx for respiratory failure as above (5) Pelvis fracture Current Visit: Yes Status: Suspected Assessment and Plan: Comminuted fractures of the right parasymphyseal pubic bone with extension to the superior ramus. Oblique, mildly comminuted fracture of the right inferior pubic ramus. follow with orthopedic surgery (6) A-fib Current Visit: No Status: Chronic Assessment and Plan: not on AC due to hx of hemorrhagic stroke resume bb (7) CKD stage G3b/A1, GFR 30-44 and albumin creatinine ratio <30 mg/g Current Visit: No Status: Chronic Assessment and Plan: Cr around his baseline monitor while on IV lasix as above avoid nephrotoxins (8) DM type 2 (diabetes mellitus, type 2) Current Visit: No Status: Acute Assessment and Plan: basal bolus insulin (9) Hypertension Current Visit: No Status: Chronic Assessment and Plan: given his poorly controlled BP, will increase hydralazine to 50mg BID continue bb, losartan would consider adding norvasc if needed (10) Abnormal finding on CT scan Current Visit: Yes Status: Acute Assessment and Plan: CT abdo/pelvis showed findings that 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 LFT normal. For outpatient MRI if he desires to pursue further. (11) FELECIA on CPAP Current Visit: No Status: Acute Assessment and Plan: CPAP at HS (12) DVT prophylaxis Current Visit: No Status: Acute Assessment and Plan: Subcutaneous heparin - Time Spent with Patient Total time spent is greater than 50% in coordination of care (as documented) at patient's floor/unit and/or counseling patient: Greater than 35 minutes Plan of Care Discussed with: patient (discussed with Surgery) Internal Medicine: Result - Labs CBC & Chem 7: 03/14/19 07:18 03/14/19 07:18 Labs: Short CBC 03/14/19 Range/Units 07:18 WBC 7.9 (4.3-11.1) K/mcL Hgb 11.0 L (12.9-16.9) g/dL Hct 34.7 L (37.5-50.1) % Plt Count 131 L (140-400) K/mcL BMP 03/14/19 07:18 Sodium 140 Potassium 3.8 Chloride 103 Carbon Dioxide 26 BUN 39 H Creatinine 1.71 H Glucose 197 H Calcium 9.1 Urine 03/14/19 Range/Units 10:20 Urine Color Yellow (Yellow) Urine Clarity Cloudy A (Clear) Urine pH 5.5 (5.0-8.0) pH Units Ur Specific [place] 1.007 L (1.010-1.025) Urine Protein Negative (Neg-Trace) mg/dL Urine Glucose (UA) Normal (Normal) mg/dL - ABG Interpretation ABG results: ABG ABG pH 7.39 pH Units (7.32-7.45) 03/14/19 09:52 ABG pCO2 40 mmHg (35-45) 03/14/19 09:52 ABG pO2 68 mmHg (85-104) L 03/14/19 09:52 ABG O2 Saturation 93 % (95-98) L 03/14/19 09:52 PT/INR, D-dimer PT 11.7 Seconds (9.4-12.1) 03/14/19 09:29 - Impressions Impressions Chest X-Ray 03/14/19 00:11 IMPRESSION: 1. Pulmonary edema. 2. Bibasilar airspace disease is favored to represent atelectasis. D/ / Aly Dickey MD / Aly Dickey MD Interpreting Provider: Aly Dickey MD Consult Discharge Plan - Plan Referrals: NONE,PCP [Primary Care Provider] - (2) Fever Qualifiers: Fever type: unspecified Qualified Code(s): R50.9 - Fever, unspecified (4) Right rib fracture Qualifiers: Encounter type: sequela Rib fracture type: multiple ribs Fracture type: closed Qualified Code(s): S22.41XS - Multiple fractures of ribs, right side, sequela (5) Pelvis fracture Qualifiers: Encounter type: initial encounter Pelvic bone location: pubis Sublocation of pubis: unspecified portion of pubis Fracture type: closed Laterality: unspecified laterality Qualified Code(s): S32.509A - Unspecified fracture of unspecified pubis, initial encounter for closed fracture (6) A-fib Qualifiers: Atrial fibrillation type: unspecified Qualified Code(s): I48.91 - Unspecified atrial fibrillation (8) DM type 2 (diabetes mellitus, type 2) Qualifiers: Diabetes mellitus senior living insulin use: without senior living use Diabetes mellitus complication status: without complication Qualified Code(s): E11.9 - Type 2 diabetes mellitus without complications (9) Hypertension Qualifiers: Hypertension type: essential hypertension Qualified Code(s): I10 - Essential (primary) hypertension
[2019-03-14] MEDS: Insulin DETEMIR 100 UNIT/ML X5UNITS SQ SCH (20:02)
[2019-03-14] MEDS: (Mirabegron [Myrbetriq] 50 MG) PO SCH (20:04)
[2019-03-15] MEDS: Levalbuterol Neb 1.25 MG/3 ML IH SCH ×3 (04:04→15:47)
[2019-03-15] MEDS: *HR* Heparin 5,000 UNIT/ML VIAL SQ SCH (05:04)
[2019-03-15 05:14] LABS: Basophils % 0.1 %; Eosinophils % 0.3 %; Hematocrit 30.1 % (37.5-50.1); Immature Granulocytes % 0.1 % (0-4); Lymphocytes % 7.7 %; Mean Corpuscular HGB Conc 31.2 g/dL (31.6-35.5); Mean Corpuscular Hemoglobin 30.8 pg (28.0-33.3); Mean Corpuscular Volume 98.7 fL (83.0-100.0); Mean Platelet Volume 9.2 fL (9.4-12.4); Monocytes # 0.6 K/mcL (0.0-1.3); Monocytes % 8.7 %; Neutrophils # 5.9 K/mcL (1.6-8.9); Platelet Count 109 K/mcL (140-400); Red Blood Count 3.05 M/mcL (4.19-5.50); Red Cell Distribution Width 14.6 % (11.5-14.5); Segmented Neutrophils % 83.1 %; White Blood Count 7.1 K/mcL (4.3-11.1)
[2019-03-15 05:22] LABS: Hemoglobin 9.4 g/dL (12.9-16.9); Lymphocytes # 0.6 K/mcL (0.6-4.6)
[2019-03-15 05:43] LABS: Platelet Estimate Decreased (Normal)
[2019-03-15 05:51] LABS: Calcium 8.7 mg/dL (8.6-10.3); Potassium 4.1 mEq/L (3.5-5.1)
[2019-03-15] MEDS: hydrALAZINE 25 MG TABLET PO SCH (08:00)
[2019-03-15] MEDS: Metoprolol XL (24 HR) Succ 50 MG TAB.ER.24H PO SCH (08:00)
[2019-03-15] MEDS: BuPROPion XL (24 HR) 150 MG TABLET PO SCH (08:00)
[2019-03-15] MEDS: Aspirin 81 MG TAB.CHEW PO SCH (08:01)
[2019-03-15] MEDS: Insulin LISPRO 300 UNITS/3 ML VIAL SQ SCH ×2 (08:02→11:56)
[2019-03-15] MEDS ORDERED: 0.9 % Sodium Chloride 500 ML ONE ×2 (08:08→12:58)
[2019-03-15] MEDS: 0.9 % Sodium Chloride 500 ML ONE (08:12)
[2019-03-15] MEDS ORDERED: *HR* SitaGLIPtin 25 MG TABLET PO SCH (09:00)
--- NOTE | 2019-03-15 10:55 | Internal Med Progress Note ---
Hospitalist Progress Note - Encounter Date of Encounter: 03/15/19 Time of Encounter: 09:45 - Subjective Interval History: No acute events overnight. Appears to be more awake this morning. No new complaints but he needs constant reminder to utilize DIETITIAN for pain control and use incentive spirometry. Denies any melena, hematochezia, BRBPR - Exam Vitals: Temp Pulse Resp BP Pulse Ox 98.0 F 99 22 113/82 95 03/15/19 08:00 03/15/19 10:00 03/15/19 10:43 03/15/19 10:00 03/15/19 10:43 Exam: General: Alert and oriented 3, much more awake and interactive today HEENT:pupils equal, round and reactive. Cardiovascular:Normal S1 & S2, no rubs, murmurs or gallops. No JVD. Pulse regular Lungs: minimal bibasilar crackles Abdomen:Soft, non-tender, no rigidity. Tenderness to palpation along the right lower ribs Extremities:No deformity, no edema or tenderness, no joint swelling or clubbing. Neurological:No focal deficits - Assessment and Plan (1) Acute respiratory failure with hypoxia Current Visit: Yes Status: Acute Assessment and Plan: developed hypoxia and somnolence on the night of 03/13 despite being on CPAP pt has underlying severe FELECIA although pt also had fever, chest CT on presentation did not show any consolidative findings. CXR consistent with pulmonary edema but was a poor inspiratory film pt was also unable to utilize incentive spirometry adequately due to somnolence mostly likely due to atelectasis secondary to pain from rib fractures unable to obtain CTA to rule out PE due to renal dysfunction but LE doppler -ve for DVT and echocardiogram did not show any R heart strain was transferred to ICU yesterday due to the need for 1:1 care. Continue O2 supplementation alternating between HFNC and CPAP. Cr slightly increased after IV diuresis, will monitor off lasix today continue bronchodilators echocardiogram showed preserved EF fever also resolved, will monitor off abx (2) Fever Current Visit: Yes Status: Acute Assessment and Plan: Tmax 102 8am, afebrile for 24 hours no source of infection identified on the initial workup leading to the admission appears to be most likely due to atelectasis, UA was also unremarkable. 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 and esophageal reflux recent iron panel unremarkable in 02/2019 start PPI, monitor H&H (4) Multiple transverse process fractures Current Visit: Yes Status: Acute Assessment and Plan: multiple transverse processes of T11-L3 appreciate spine surgery input, for TLSO brace today PT/OT, pain control (5) Right rib fracture Current Visit: Yes Status: Acute Assessment and Plan: conservative mx complicated by atelectasis, mx for respiratory failure as above (6) Pelvis fracture Current Visit: Yes Status: Suspected Assessment and Plan: Comminuted fractures of the right parasymphyseal pubic bone with extension to the superior ramus. Oblique, mildly comminuted fracture of the right inferior pubic ramus. follow with orthopedic surgery (7) A-fib Current Visit: No Status: Chronic Assessment and Plan: not on AC due to hx of hemorrhagic stroke resume bb (8) CKD stage G3b/A1, GFR 30-44 and albumin creatinine ratio <30 mg/g Current Visit: Yes Status: Chronic Assessment and Plan: Cr slightly increased after IV lasix yesterday. d/c lasix and monitor UOP as well as Cr avoid nephrotoxins if Cr continues to worsen, will consult nephrology will also hold on losartan today (9) DM type 2 (diabetes mellitus, type 2) Current Visit: No Status: Acute Assessment and Plan: basal bolus insulin (10) Hypertension Current Visit: No Status: Chronic Assessment and Plan: losartan on hold as above. 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 LFT normal. For outpatient MRI if he desires to pursue further. (12) FELECIA on CPAP Current Visit: No Status: Acute Assessment and Plan: CPAP at HS (13) DVT prophylaxis Current Visit: No Status: Acute Assessment and Plan: will switch to EPCD given Plt count trending down - Time Spent with Patient Total time spent is greater than 50% in coordination of care (as documented) at patient's floor/unit and/or counseling patient: Greater than 35 minutes Plan of Care Discussed with: patient (discussed with pt's daughter and RN in detail) Internal Medicine: Result - Labs CBC & Chem 7: 03/15/19 05:03 03/15/19 05:03 Labs: Short CBC 03/15/19 Range/Units 05:03 WBC 7.1 (4.3-11.1) K/mcL Hgb 9.4 L D (12.9-16.9) g/dL Hct 30.1 L (37.5-50.1) % Plt Count 109 L (140-400) K/mcL Neutrophils # 5.9 (1.6-8.9) K/mcL BMP 03/15/19 05:03 Sodium 137 Potassium 4.1 Chloride 102 Carbon Dioxide 27 BUN 51 H Creatinine 2.19 H Glucose 179 H Calcium 8.7 Urine 03/14/19 Range/Units 10:20 Urine Color Yellow (Yellow) Urine Clarity Cloudy A (Clear) Urine pH 5.5 (5.0-8.0) pH Units Ur Specific [place] 1.007 L (1.010-1.025) Urine Protein Negative (Neg-Trace) mg/dL Urine Glucose (UA) Normal (Normal) mg/dL - ABG Interpretation ABG results: ABG ABG pH 7.39 pH Units (7.32-7.45) 03/14/19 09:52 ABG pCO2 40 mmHg (35-45) 03/14/19 09:52 ABG pO2 68 mmHg (85-104) L 03/14/19 09:52 ABG O2 Saturation 93 % (95-98) L 03/14/19 09:52 PT/INR, D-dimer PT 11.7 Seconds (9.4-12.1) 03/14/19 09:29 - Impressions Impressions Echocardiogram 03/14/19 08:00 Impressions: Technically sub-optimal due to poor echocardiographic windows. LVEF 65%. Normal LV chamber size and function. Mild concentric left ventricular hypertrophy. Indeterminate diastolic function. Normal right ventricular structure and function. No evidence of pulmonary hypertension. No significant valvular dysfunction. Left Ventricular Wall Motion: Rest Echo Findings All wall segments showed normal motion. Findings: Study Quality * Technically sub-optimal due to poor echocardiographic windows. ECG Findings * Atrial fibrillation. Left Ventricle * LVEF 65%. * Normal LV chamber size and function. * Mild concentric left ventricular hypertrophy. * Indeterminate diastolic function. Right Ventricle * Normal right ventricular structure and function. Left Atrium * Severely dilated left atrium. Right Atrium * Mildly dilated right atrium. Interatrial Septum * Interatrial septum not well evaluated. Aortic Valve * Aortic valve not well visualized. * Grossly, mildly sclerotic aortic valve leaflets. * No aortic regurgitation. * No aortic stenosis. Mitral Valve * Mild mitral annular calcification * Trace mitral regurgitation. * No mitral stenosis. Tricuspid Valve * Normal tricuspid valve structure and function. * Trace tricuspid regurgitation. * No evidence of pulmonary hypertension. Pulmonic Valve * Pulmonic valve not well visualized. Aorta * Normally sized aortic root. Pericardium * The pericardium appears normal. IVC * The IVC is not well evaluated. Pulmonary Artery * Pulmonary artery not well visualized. Consult Discharge Plan - Plan Referrals: NONE,PCP [Primary Care Provider] - (2) Fever Qualifiers: Fever type: unspecified Qualified Code(s): R50.9 - Fever, unspecified (3) Anemia Qualifiers: Anemia type: unspecified type Qualified Code(s): D64.9 - Anemia, unspecified (5) Right rib fracture Qualifiers: Encounter type: sequela Rib fracture type: multiple ribs Fracture type: closed Qualified Code(s): S22.41XS - Multiple fractures of ribs, right side, sequela (6) Pelvis fracture Qualifiers: Encounter type: initial encounter Pelvic bone location: pubis Sublocation of pubis: unspecified portion of pubis Fracture type: closed Laterality: unspecified laterality Qualified Code(s): S32.509A - Unspecified fracture of unspecified pubis, initial encounter for closed fracture (7) A-fib Qualifiers: Atrial fibrillation type: unspecified Qualified Code(s): I48.91 - Unspecified atrial fibrillation (9) DM type 2 (diabetes mellitus, type 2) Qualifiers: Diabetes mellitus rat exterminator insulin use: without care home use Diabetes mellitus complication status: without complication Qualified Code(s): E11.9 - Type 2 diabetes mellitus without complications (10) Hypertension Qualifiers: Hypertension type: essential hypertension Qualified Code(s): I10 - Essential (primary) hypertension
[2019-03-15] MEDS ORDERED: Pantoprazole 40 MG VIAL IVP SCH (11:00)
[2019-03-15] MEDS ORDERED: Cisatracurium 200 MG in 0.9 % Sodium Chloride 180 ML IVC SCH (12:00)
--- NOTE | 2019-03-15 12:16 | General Surgery Progress Note ---
Date of Encounter: 03/15/19 Time of Encounter: 12:12 Objective Vital Signs - Last 8 Hours Temp Pulse Resp BP Pulse Ox 03/15/19 10:43 22 95 03/15/19 10:00 99 14 113/82 94 03/15/19 09:00 93 19 135/71 93 03/15/19 08:00 98.0 F 93 15 138/80 94 03/15/19 07:14 98.0 F 03/15/19 07:00 93 15 128/79 94 03/15/19 06:00 95 15 124/73 94 03/15/19 05:04 97 18 130/75 94 Intake and Output 03/14/19 03/15/19 03/15/19 23:59 07:59 15:59 Intake Total 400 / 1148 700 / 1060 360 / 1060 Output Total 550 / 1700 150 / 150 Balance -150 / -552 550 / 910 360 / 910 Intake: IV Fluids 500 / 500 0.9 % Sodium Chloride 500 ML @ 500 / 500 0 mls/hr .ROUTE .[facility] ONE Rx #:[id number] Oral 400 / 400 200 / 560 360 / 560 Output: Catheter 550 / 1700 150 / 150 Other: Meal Breakfast Percent of Meal Consumed 10% Weight 77.4 kg Blood Glucose* 208 162 162 - Labs 03/15/19 05:03 03/15/19 05:03 Diabetes panel 03/15/19 Range/Units 05:03 Sodium 137 (136-145) mEq/L Potassium 4.1 (3.5-5.1) mEq/L Chloride 102 (98-107) mEq/L Carbon Dioxide 27 (23-29) mEq/L BUN 51 H (8-23) mg/dL Creatinine 2.19 H (0.70-1.30) mg/dL Glucose 179 H (70-105) mg/dL Calcium 8.7 (8.6-10.3) mg/dL Calcium panel 03/15/19 Range/Units 05:03 Calcium 8.7 (8.6-10.3) mg/dL Pituitary panel 03/15/19 Range/Units 05:03 Sodium 137 (136-145) mEq/L Potassium 4.1 (3.5-5.1) mEq/L Chloride 102 (98-107) mEq/L Carbon Dioxide 27 (23-29) mEq/L BUN 51 H (8-23) mg/dL Creatinine 2.19 H (0.70-1.30) mg/dL Glucose 179 H (70-105) mg/dL Calcium 8.7 (8.6-10.3) mg/dL Adrenal panel 03/15/19 Range/Units 05:03 Sodium 137 (136-145) mEq/L Potassium 4.1 (3.5-5.1) mEq/L Chloride 102 (98-107) mEq/L Carbon Dioxide 27 (23-29) mEq/L BUN 51 H (8-23) mg/dL Creatinine 2.19 H (0.70-1.30) mg/dL Glucose 179 H (70-105) mg/dL Calcium 8.7 (8.6-10.3) mg/dL Consult Discharge Plan - Plan Referrals: NONE,PCP [Primary Care Provider] -
--- NOTE | 2019-03-15 12:24 | General Surgery Progress Note ---
Date of Encounter: 03/15/19 Time of Encounter: 12:13 Subjective Narrative: Hospital Day #3 Patient somnolent, and hypotensive following administration 1 mg morphine via CHOCOLATIER. The patient had just completed incentive spirometry per encouragement by nursing staff and required pain meds as expected. The patient has been afebrile since transferred to ICU with significant improvement in his compliance with incentive spirometry and CPAP Currently 88.0, pulse irregular, ranging 93-99; respiratory rate 14-22. BP 135/71 upon my arrival at bedside 89/50. SPO2 92% Lungs: Some rales right side; most likely due to atelectasis secondary to fractured ribs and transverse processes on the right side Abdomen: Soft, nontender but slightly distended; hypoactive bowel sounds. Suspected ileus due to bedrest, inactivity, and pain meds Urine output: 1700 mL in the last 24 hours as a result of Lasix diuresis; only 150 mL recorded so far today Labs: WBC 7.1, differential within normal limits; hemoglobin decreased 9.4 with hematocrit 30.1. Platelet count has fallen to 109,000. Electrolytes stable and within normal limits however BUN has risen to 51, creatinine increased to 2.19, estimated GFR has fallen to 29 Impression: 83-year-old male with multiple rib fractures, 5 through 8 on the right side; fractured transverse processes of T11-L3 and pelvic fractures involving the right parasymphyseal pubis with extension into the superior ramus. Patient still experiencing a great deal of pain resulting in hypoventilation and hypoxemia. Patient with an underlying CKD-3 secondary to hypertension and diabetes; showing evidence of acute on chronic progressive renal failure Patient hypotensive with 1 mg IV morphine Platelet count continues to diminish, thrombocytopenia possibly due to subcutaneous heparin (HIT) versus consumption of platelets due to the multiple fractures Recommendations: Increase fluids. Saline fluid bolus ordered. Consider nephrology consultation; patient sees Dr. Bates for his chronic kidney disease Reduce CHOCOLATIER morphine to 0.5 mg every 10 minutes. Continue diet as tolerated Begin bowel regimen. Administer Fleet enema today. Dulcolax suppository every Friday, beginning Friday. If ineffective follow with Fleet enema. If Fleet enema ineffective, follow with soap suds enema. Continue incentive spirometry and CPAP. Patient requires aggressive pulmonary toilet. Objective Vital Signs - Last 8 Hours Temp Pulse Resp BP Pulse Ox 03/15/19 10:43 22 95 03/15/19 10:00 99 14 113/82 94 03/15/19 09:00 93 19 135/71 93 03/15/19 08:00 98.0 F 93 15 138/80 94 03/15/19 07:14 98.0 F 03/15/19 07:00 93 15 128/79 94 03/15/19 06:00 95 15 124/73 94 03/15/19 05:04 97 18 130/75 94 Intake and Output 03/14/19 03/15/19 03/15/19 23:59 07:59 15:59 Intake Total 400 / 1148 700 / 1060 360 / 1060 Output Total 550 / 1700 150 / 150 Balance -150 / -552 550 / 910 360 / 910 Intake: IV Fluids 500 / 500 0.9 % Sodium Chloride 500 ML @ 500 / 500 0 mls/hr .ROUTE .[facility] ONE Rx #:[id number] Oral 400 / 400 200 / 560 360 / 560 Output: Catheter 550 / 1700 150 / 150 Other: Meal Breakfast Percent of Meal Consumed 10% Weight 77.4 kg Blood Glucose* 208 162 162 - Labs 03/15/19 05:03 03/15/19 05:03 Diabetes panel 03/15/19 Range/Units 05:03 Sodium 137 (136-145) mEq/L Potassium 4.1 (3.5-5.1) mEq/L Chloride 102 (98-107) mEq/L Carbon Dioxide 27 (23-29) mEq/L BUN 51 H (8-23) mg/dL Creatinine 2.19 H (0.70-1.30) mg/dL Glucose 179 H (70-105) mg/dL Calcium 8.7 (8.6-10.3) mg/dL Calcium panel 03/15/19 Range/Units 05:03 Calcium 8.7 (8.6-10.3) mg/dL Pituitary panel 03/15/19 Range/Units 05:03 Sodium 137 (136-145) mEq/L Potassium 4.1 (3.5-5.1) mEq/L Chloride 102 (98-107) mEq/L Carbon Dioxide 27 (23-29) mEq/L BUN 51 H (8-23) mg/dL Creatinine 2.19 H (0.70-1.30) mg/dL Glucose 179 H (70-105) mg/dL Calcium 8.7 (8.6-10.3) mg/dL Adrenal panel 03/15/19 Range/Units 05:03 Sodium 137 (136-145) mEq/L Potassium 4.1 (3.5-5.1) mEq/L Chloride 102 (98-107) mEq/L Carbon Dioxide 27 (23-29) mEq/L BUN 51 H (8-23) mg/dL Creatinine 2.19 H (0.70-1.30) mg/dL Glucose 179 H (70-105) mg/dL Calcium 8.7 (8.6-10.3) mg/dL Consult Discharge Plan - Plan Referrals: NONE,PCP [Primary Care Provider] -
[2019-03-15] MEDS: Naloxone 0.4 MG/ML INJ IVP PRN ×2 (12:50→13:06)
[2019-03-15 13:18] LABS: ABG Base Excess -10 mEq/L (-2 to 3); ABG HCO3 17 mEq/L (21-27); ABG Oxygen Saturation 86 % (95-98); ABG PCO2 43 mmHg (35-45); ABG PH 7.21 pH Units (7.32-7.45); ABG PO2 63 mmHg (85-104); ABG TCO2 18 mEq/L (20-26)
[2019-03-15] MEDS ORDERED: Sodium Bicarbonate 150 MEQ in D5% in Water 1,000 ML IVC SCH (14:00)
[2019-03-15] MEDS ORDERED: 0.9 % Sodium Chloride 1,000 ML ONE (14:01)
[2019-03-15 14:16] LABS: ABG Base Excess -10 mEq/L (-2 to 3); ABG HCO3 19 mEq/L (21-27); ABG Oxygen Saturation 68 % (95-98); ABG PCO2 65 mmHg (35-45); ABG PH 7.08 pH Units (7.32-7.45); ABG PO2 50 mmHg (85-104); ABG TCO2 21 mEq/L (20-26); Blood Gas PEEP 8 cm H2O; Blood Gas VT 500 cc
[2019-03-15] MEDS ORDERED: *HR* Midazolam HCl 2 MG/2 ML VIAL IV ONE (14:29)
[2019-03-15] MEDS ORDERED: *HR* Midazolam HCl 5 MG/5 ML VIAL IVP ONE (14:29)
[2019-03-15] MEDS ORDERED: *HR* Etomidate 20 MG/10 ML AMPUL IVP ONE (14:29)
[2019-03-15 14:38] LABS: Nucleated Red Blood Cells 0.2 /100 WBC (0)
[2019-03-15 14:40] LABS: Hematocrit 19.8 % (37.5-50.1); Mean Corpuscular HGB Conc 29.3 g/dL (31.6-35.5); Mean Corpuscular Hemoglobin 31.2 pg (28.0-33.3); Mean Corpuscular Volume 106.5 fL (83.0-100.0); Mean Platelet Volume 10.3 fL (9.4-12.4); Platelet Count 103 K/mcL (140-400); Red Blood Count 1.86 M/mcL (4.19-5.50); Red Cell Distribution Width 14.4 % (11.5-14.5); White Blood Count 8.7 K/mcL (4.3-11.1)
--- NOTE | 2019-03-15 14:46 | Procedure Note ---
<Dov Brown - Last Filed: 03/15/19 14:38> Date of procedure: 03/15/19 Pre-op diagnosis: hypotension Post-op diagnosis: same Procedure: Date: 03/15/19 Time: 13:45 Indication: Hemodynamic monitoring Resident: Dov Brown Attending: John Perea Femoral arterial Line The patients right groin was prepped and draped in sterile fashion. An arterial line was introduced into the femoral artery. The catheter was threaded over the guide wire and the needle was removed with appropriate pulsatile blood return. The catheter was then sutured in place to the skin and a sterile dressing applied. Perfusion to the extremity distal to the point of catheter insertion was checked and found to be adequate. Attending was present for the entire procedure. Estimated Blood Loss: 10cc The patient tolerated the procedure well and there were no complications. Was there an preschool assistant teacher present: Yes Boring And Filling Machine Operator: Linda Best Estimated blood loss (cc): 10 Specimen: none Pathology: none sent Condition: critical Disposition: ICU <John Perea S - Last Filed: 03/15/19 16:07> Procedure: I was present during the entire procedure assisted in the critical portion of the procedure
[2019-03-15 14:48] LABS: Hemoglobin 5.8 g/dL (12.9-16.9); INR 1.3; Prothrombin Time 14.2 Seconds (9.4-12.1)
--- NOTE | 2019-03-15 14:53 | Procedure Note ---
Date of procedure: 03/15/19 Pre-op diagnosis: hypoxic respiratory failure Post-op diagnosis: same Procedure: Endotracheal Intubation Date: 03/15/2019 Time: 13:35 Indication: Respiratory Distress Attending: A time-out was completed verifying correct patient, procedure, site, positioning, and special equipment if applicable. The patient was placed in a flat position. Sedation was obtained using <Versed 2mg>, and additionally with <Etomidate 15 mg>. The patient was easily ventilated using an ambu bag. The <GLIDESCOPE [employer]CHNOLOGY/ MAC 3 BLADE> was used and inserted into the oropharynx at which time there was a Grade 1 view of the vocal cords. A 7.5-hebrew endotracheal tube was inserted and visualized going through the vocal cords. The stylette was removed. Colorimetric change was visualized on the CO2 meter. Breath sounds were heard in both lung [place] equally. The endotracheal tube was placed at 23 cm, measured at the teeth. Before the glidescope attempt i did direct laryngoscopy which showed lot of blood coming for esophagus i could not visualize the cords i did thorough suctioning in the mean time patient was struggling before the second attempt patient had cardiac arrest resuscitation during the resuscitation he was intubated as noted above . Patient was successfully resuscitated was put on IV vasopressors . A chest x-ray was ordered to assess for pneumothorax and verify endotrachealtube placement. The Subclavian line was placed there was no evidence of pneumothorax , ET 2cms was above the mary recommended to pull the tube by 2 cms . Estimated Blood Loss: 300 ml due to suspected GI bleed The patient tolerated the procedure well and there were no complications. Anesthesia: IV sedation Was there an employee relations assistant present: No Estimated blood loss (cc): 300 Specimen: none Pathology: none sent Condition: critical Disposition: ICU
[2019-03-15 14:55] LABS: Albumin 2.2 g/dL (3.5-5.7); Albumin/Globulin Ratio 1.3 (1.1-2.2); Bilirubin,Total 0.7 mg/dL (0.3-1.0); Calcium 7.1 mg/dL (8.6-10.3); Globulin 1.7 g/dL (2.4-3.5); Potassium 4.5 mEq/L (3.5-5.1); Total Protein 3.9 g/dL (6.4-8.9); Troponin I 0.03 ng/mL (< 0.04)
--- NOTE | 2019-03-15 15:18 | Death Note ---
Discharge Sum: Summary - Date and Time Date of admission: 03/13/19 14:16 Date of : 03/15/19 Time of : 14:30 - Summary Details: Mr. Elizabeth is a 83 year old male with past medical history of diabetes, atrial fibrillation not on AC due to hx of hemorrhagic stroke, hypertension, coronary artery disease status post stenting, CVA, CKD, and sleep apnea who was admitted on 03/13 after an episode of fall. Pt fell backwards while carrying 2 items in his hands and going up the stairs, fell backward, and hit the right side of his body. Upon presentation to the ED, he was found to have right 8th-12th ribs, rig ht transverse process T11-L3, right parasymphyseal pubic bone fracture extending to superior ramus, and R inferior pubic ramus fracture. Orthopedic surgery evaluated the patient and ordered TLSO brace for him. Per pt's request, general surgery was also consulted for ongoing evaluation. On the night of 03/13, he developed hypoxic respiratory failure and transient episodes of fever that was attributed to atelectasis from inefficient ventilation and severe FELECIA. Of note, patient apparently had a similar episode of hypoxia and confusion in 2015 when he was admitted for L rib fractures from fall under the surgical service. Given his need for 1:1 nursing care, he was transferred to ICU on 03/14and had been maintaining his saturation well on HFNC as well as CPAP at HS. CXR showed possible mild pulmonary edema for which he was given IV diuresis. There was a concern for PE given the sudden increase in his oxygen requirement but due to his CKD and similar episodes of hypoxia in the past, the decision was made to hold off on CTA after discussing with the family members. Instead, echocardiogram was done which showed normal RV and LV function and lower extremity doppler did not show any evidence of DVT. CT chest on presentation did not show any consolidative changes hence the suspicion for PNA was also low. On 03/15, during the morning round, his oxygenation as well as mental status had significantly improved with stable hemodynamics. His Cr did increase to 2.1 from 1.7 hence IV diuresis was stopped. The plan was to control his pain so that he can continue to use incentive spirometry, use CPAP PRN, and participate in PT/OT. Later in the afternoon, ~ 1250pm, I was notified that pt developed increasing somnolence and hypotension. He was difficult to arouse even with painful stimuli and started to require increasing O2 as well. Given his sudden change in clinical status, family members at bedside decided to revert his code status to full code. Critical care team and general surgeon immediately attended to the patient for resuscitation. During the placement of CVC and intubation, patient went into cardiac arrest requiring 3 rounds of CPR before ROSC. While in ICU on vasopressors, he developed cardiac arrest x 2 within an hour and the decision was then again made to switch his code status to DNRCC. Patient then at 1430. - Additional Data Confirmation of as documented by pronouncing clinician: no pulse, no respirations, no heart sounds, pupils fixed and dilated Family: at bedside Attending/PCP notified?: Yes Attending physician: Oh Lerma MD Was code activated?: Yes Autopsy requested?: No driver license examiner notified?: No Discharge Sum: Diag - PCOD Probable Cause of : Respiratory arrest (shock) Discharge Sum: Prov - Provider Primary care physician: PCP NONE Consults: 03/12/19 21:58 Consult to Orthopedic Surgery [CONS] Stat Consulting Provider: [facility] Reason for Consult: pelvis and spine fractures Call Completed: No 03/12/19 22:08 Consult to Surgery [CONS] Stat Consulting Provider: [facility] Reason for Consult: rib fractures, pelvis fracture, spine fractures Time Notified: 22:09 Call Completed: Yes 03/13/19 09:56 Consult to Occupational Therapy [CONS] Routine Comment: Evaluate, develop and implement POC Reason for Consult: multiple fractures including R rib, R transverse process of T11-L3, and pubic bones. Does patient have active BEDREST order?: No Is patient medically & hemodynamically stable?: Yes Consult to Physical Therapy [CONS] Routine Comment: Evaluate, develop and implement POC Reason for Consult: multiple fractures including R rib, R transverse process of T11-L3, and pubic bones. Does patient have active BEDREST order?: No Is patient medically & hemodynamically stable?: Yes 03/15/19 13:38 Consult to Critical Care [CONS] Stat Consulting Provider: [facility] [place] Reason for Consult: respiratory failure, shock Call Completed: Yes
[2019-03-15 15:23] LABS: Lymphocytes # 3.5 K/mcL (0.6-4.6); Monocytes # 0.9 K/mcL (0.0-1.3); Platelet Estimate Decreased (Normal)
--- NOTE | 2019-03-15 15:42 | Pulmonology Consult Note ---
Date of Encounter: 03/15/19 Time of Encounter: 13:45 Assessment and Plan (1) Cardiopulmonary arrest Current Visit: Yes Status: Acute Patient with worsening hypoxic respiratory failure during fluid resuscitation patient became hypotensive during fluid resuscitation and became fully, does not responding to any painful stimuli it was decided to intubate the patient been for mechanical ventilation because of the worsening heart acute hypoxic respiratory failure and hemodynamic instability patient had minimal dose of 2 mg of Versed and 15 mg of etomidate. After this medication patient was still agitated was clenching his teeth attempted intubation with the direct laryngoscopy patient had full amount of blood in his back of his throat most likely coming from the GI tract and took of the direct laryngoscope and I did suctioning before was attempted to bag and mask ventilated before the second intubation patient went for cardiopulmonary status patient was resuscitated successfully within 5 minutes. During one of the pulse check a intubated with glidescope successfully . Patient was started on mechanical ventilation blood gas shows a mixed said that metabolic and respiratory acidosis more of a metabolic component complicated by lactic acidosis wonder the GI process most likely GI bleed on acute blood loss anemia from his pelvic fracture c ontributing. To this needed to supply demand ischemia lead to a coronary event which led to repeated the cardiopulmonary arrest after the third attempt of CPR resuscitation. Patient according to his wishes changing the CODE STATUS to DNR CCA patient lost his pulse again patient was pronounced and the discharge summary was done by the hospitalist. (2) Acute blood loss anemia Current Visit: Yes Status: Acute postresuscitation hemoglobin around 5 showed significant acute blood loss anemia either from the GI tract or the pelvic fracture patient cannot tolerate this acute blood loss with his background of coronary artery disease with hypotension and with this anemia in spite of fluid resuscitation patient went into cardiopulmonary arrest was 3 times at assisted is successfully. The patient family changes CODE STATUS according to patient wishes to DNR patient peacefully after that. (3) Acute respiratory failure with hypoxia Current Visit: Yes Status: Acute Patient developed this acute respiratory rate with the hypoxia V/Q mismatch can be due to sudden developed a pulmonary edema due to acute coronary syndrome complicated by this acute blood loss anemia versus acute pulmonary embolism. Patient was intubated and mechanically ventilated after 3 successful cardiopulmonary resuscitation patient still was hypotensive patient family changes goals of care. History of Present Illness Consult date: 03/15/19 Requesting physician: Oh S Nho Reason for consult: other (hypoxic respiratory failure ) Chief complaint: Shortness of breath leading to hypoxic respiratory failure History of present illness: 83-year-old male with past medical history off hypertension, chronic kidney disease, coronary artery disease with stent, atrial fibrillation comes with mechanical fall with rib fracture , transverse process fracture of the vertebral processes lower thoracic and upper lumbar. Patient was getting management for acute hypoxic respiratory failure managed by incentive spirometry patient was managed by hospitalist general surgery. I was called by the registered nurse patient is developing respiratory distress while he was having fluid resuscitation for acute onset of hypotension Rea to the intensive care unit for possible endotracheal intubation and mechanical ventilation. When I walked in the room patient was on BiPAP unresponsive the surgeon was ready to put a right subclavian central venous catheterization and I was preparing to intubate the patient patient was saturating around 89-90% on 100% on BiPAP and patient's saturation slowly dropped with a bag and mask ventilation the patient's saturation was around 87-88%. Since patient had a full stomach I did a modified rapid sequence without any muscle relaxant given etomidate 15 mg and Versed 2 mg with direct laryngoscopy I cannot see anything because of lot of blood suctioned it thoroughly before the second attempt patient coded started bag and mask ventilation chest compression was started in the middle of pulse check I intubated with the Glidescope 7.5 mm tube was used. It was secured. Patient was connnected to mechanical ventilation Past Med Surg Social Fam HX - Past Medical History Medical history: atrial fibrillation, coronary artery disease, CVA, diabetes, hypertension, myocardial infarction Additional medical history: brain bleed Psychiatric history: anxiety, depression - Past Surgical History Surgical History: angioplasty/stent Additional surgical history: gastric resections x 2, left knee surgery - Social History Smoking Status: Former smoker Smokeless Tobacco Status: No Alcohol use: occasionally Drug use: none - Family History Mother Living Status: Age at : 92 Hx Family Cancer: Yes (breast cancer) Father Living Status: Age at : 78 Hx Family Cardiac Disorders: Yes (htn) Hx Family Medical Disorders: Yes (HTN) Medications and Allergies Aspirin 81 mg PO HS 07/15/16 [History] BuPROPion XL (24 HR) [Wellbutrin Xl] 150 mg PO DAILY 07/15/16 [History] Citalopram Hydrobromide [Celexa] 10 mg PO DAILY 07/15/16 [History] Metformin HCl [Glucophage] 500 mg PO BID 07/15/16 [History] Rosuvastatin Calcium [Crestor] 5 mg PO HS 07/15/16 [History] SitaGLIPtin [Januvia] 100 mg PO QAM 07/15/16 [History] Terazosin HCl 2 mg PO HS 07/15/16 [History] Losartan [Cozaar] 50 mg PO BID 03/13/19 [History] Mirabegron [Myrbetriq] 50 mg PO HS 03/13/19 [History] Multivit-Min/Iron Fum/Folic AC [Uljwo-Okrgkpp-Tnttvfqe Tablet] 1 tab PO DAILY 03/13/19 [History] hydrALAZINE [HydrALAZINE] 25 mg PO BID 03/13/19 [History] Metoprolol Succinate [Toprol Xl] 50 mg PO BID 03/14/19 [History] Allergy/AdvReac Type Severity Reaction Status Date / Time Phenothiazines Allergy Rash Verified 03/14/19 16:09 ROS unobtainable: due to mental status All Systems: The remainder of the systems were reviewed and are negative Physical Examination Vital Signs: Vital Signs, Last 4 Hours Resp Pulse Ox Pulse Ox Pulse Ox 03/15/19 13:55 16 87 03/15/19 13:39 0 88 General appearance: comatose Auscultation: bilateral: rales Cardiovascular: regular rate and rhythm Gastrointestinal: hypoactive bowel sounds unable to assess due to mental status Ventilator Settings Ventilator Settings: Ventilator Settings, Last 8 Hours Ventilator Tidal Volume 500 Setting Ventilator Tidal Volume 500 Setting Ventilator Respiratory Rate 30 Setting Ventilator Respiratory Rate 16 Setting Actual Respiratory Rate 16 Positive End Expiratory 8 Pressure Positive End Expiratory 8 Pressure Peak Inspiratory Airway 30 Pressure Results - Laboratory Findings CBC and BMP: 03/15/19 14:30 03/15/19 14:30 ABG ABG pH 7.08 pH Units (7.32-7.45) L* D 03/15/19 14:11 ABG pCO2 65 mmHg (35-45) H D 03/15/19 14:11 ABG pO2 50 mmHg (85-104) L* 03/15/19 14:11 ABG O2 Saturation 68 % (95-98) L 03/15/19 14:11 PT/INR, D-dimer PT 14.2 Seconds (9.4-12.1) H 03/15/19 14:30 Abnormal lab findings: Abnormal lab results RBC 1.86 M/mcL (4.19-5.50) L 03/15/19 14:30 Hgb 5.8 g/dL (12.9-16.9) L* D 03/15/19 14:30 Hct 19.8 % (37.5-50.1) L 03/15/19 14:30 MCV 106.5 fL (83.0-100.0) H D 03/15/19 14:30 MCHC 29.3 g/dL (31.6-35.5) L 03/15/19 14:30 RDW 14.6 % (11.5-14.5) H 03/15/19 05:03 Plt Count 103 K/mcL (140-400) L 03/15/19 14:30 MPV 9.2 fL (9.4-12.4) L 03/15/19 05:03 16.0 % (0-4) H 03/15/19 14:30 2.0 % (0) H 03/15/19 14:30 2.0 % (0) H 03/15/19 14:30 0.4 K/mcL (0.6-4.6) L 03/13/19 05:14 Nucleated RBCs/100 WBC 0.2 /100 WBC (0) H 03/15/19 14:30 Decreased (Normal) L 03/15/19 14:30 PT 14.2 Seconds (9.4-12.1) H 03/15/19 14:30 ABG pH 7.08 pH Units (7.32-7.45) L* D 03/15/19 14:11 ABG pCO2 65 mmHg (35-45) H D 03/15/19 14:11 ABG pO2 50 mmHg (85-104) L* 03/15/19 14:11 ABG HCO3 19 mEq/L (21-27) L 03/15/19 14:11 ABG Total CO2 18 mEq/L (20-26) L 03/15/19 13:16 ABG O2 Saturation 68 % (95-98) L 03/15/19 14:11 ABG Base Excess -10 mEq/L (-2 to 3) L 03/15/19 14:11 Carbon Dioxide 19 mEq/L (23-29) L 03/15/19 14:30 BUN 54 mg/dL (8-23) H 03/15/19 14:30 2.32 mg/dL (0.70-1.30) H 03/15/19 14:30 Est GFR ( Amer) 33 (> 60) L 03/15/19 14:30 Est GFR (Non-Af Amer) 27 (> 60) L 03/15/19 14:30 Glucose 294 mg/dL (70-105) H 03/15/19 14:30 POC Glucose 208 mg/dL (70-99) H 03/14/19 19:31 314 (280-300) H 03/15/19 14:30 Lactic Acid > 10.0 mmol/L (0.5-2.2) H* 03/15/19 14:30 Calcium 7.1 mg/dL (8.6-10.3) L 03/15/19 14:30 3.9 g/dL (6.4-8.9) L 03/15/19 14:30 2.2 g/dL (3.5-5.7) L 03/15/19 14:30 1.7 g/dL (2.4-3.5) L 03/15/19 14:30 1.65 ng/mL (0.00-0.15) H 03/15/19 14:30 Cloudy (Clear) A 03/14/19 10:20 Ur Specific Robert 1.007 (1.010-1.025) L 03/14/19 10:20 Small (Negative) H 03/14/19 10:20 Ur Leukocyte Esterase Small (Negative) H 03/14/19 10:20 5-15 per hpf (0-3) H 03/14/19 10:20 5-15 per hpf (0-3) H 03/14/19 10:20 Ur Squamous Epith Cells Moderate per lpf (None-Few) H 03/14/19 10:20 Ur Culture Indicated? YES (NO) A 03/14/19 10:20 - Microbiology Findings Microbiology Findings: Microbiology, Last 48 Hours 03/14/19 10:20 Urine Culture - Preliminary Urine,[place] Culture is incubating. 03/14/19 09:29 Blood Culture - Preliminary Peripheral Venipuncture Culture is incubating and being continuously monitored for growth. Final report to follow. 03/14/19 09:29 Blood Culture - Preliminary Peripheral Venipuncture Culture is incubating and being continuously monitored for growth. Final report to follow. - Clinical Findings Intake & Output: Intake & Output 03/14/19 03/15/19 03/15/19 23:59 07:59 15:59 Intake Total 400 / 1148 700 / 1060 360 / 1060 Output Total 550 / 1700 150 / 150 Balance -150 / -552 550 / 910 360 / 910 Weight 77.4 kg Consult Discharge Plan - Plan Referrals: NONE,PCP [Primary Care Provider] - Critical Care Time Critical Care Time: Yes Total Critical Care Time: 80 Attestation: I spent 80 minutes of Critical Care time with this patient. It involved decision making of high complexity to assess, manipulate, and support vital organ system failure and/or to prevent further life threatening deterioration of the patient's condition. The time involved in the performance of separately reportable procedures was not counted toward critical care time.
[2019-03-15 15:56] VITALS: BP 76/45
== END 2019-03-15 14:30 | disposition expired | DRG 208 ==
LOC: EMEROOARM 20:10 → 3NENU 20:10 → SUATTDRO 03-13 01:09 → 3NENU 03-13 01:54 → ICNU 03-14 11:05
PROVIDERS: ADMIT Internal Medicine; ATTEND Internal Medicine